=== PATIENT | female | born 1940 | race Hispanic/Latino ===

== ENCOUNTER 2020-06-12 13:15 | Observation (INO) | payer MEDICARE ==
[~2020-06-12] VITALS: Ht 144.8 cm; Wt 68.3 kg
[2020-06-12] MEDS ORDERED: PANTOPRAZOLE 40 MG 10ML VIAL IV STA (13:24)
--- NOTE | 2020-06-12 13:40 | Emergency Department Note ---
History of Present Illnes History of Present Illness Chief Complaint: General Medicine Complaints History of Present Illness This is a 80 year old female sent from Dr. George's office for LGIB. Chief Complaint Comment Patient in from home after being told to come here by Dr. Ac for rectal bleeding. Patient is under the care of Dr. George for GI and was at his office where a digital rectal exam was done and bleeding was noted. Per report, the patient started bleeding on Monday with small amounts of blood but it progressed to large clots today. Patient was also told that she has common bile duct distension and that was the reason why she has been going to see Dr. George. At this time the patient denies pain but does report some mild abdominal pain that was worse on Monday. Patient is also planned to have a hysterectomy and bladder suspension soon due to frequent UTIs. Socially the patient denies smoking or drinking. Historian: Patient, Family Member Arrival Mode: Car Onset (how long ago): day(s) Radiation: Reports non-radiation Severity: mild Onset quality: gradual Duration (how long): day(s) Timing of current episode: constant Progression: worsening Chronicity: new Past Medical/Family History Physician Review I have reviewed the patient's past medical and family history. Any updates have been documented here. Past Medical History Recent Fever: No Clinical Suspicion of Infectio: No New/Unexplained Change in Ment: No Past Medical History: Hypertension, Hypothyroidism, Hyperlipedemia Other Medical History: Diverticulitis Gastritis Hemorrhoids Past Surgical History: Cholecysctectomy, Back Surgery Other Surgery: arthroscopic knee surgery on left Social History Smoking Cessation: Never Smoker Review of Systems Review of Systems Constitutional: Reports no symptoms EENTM: Reports no symptoms Cardiovascular: Reports no symptoms Respiratory: Reports no symptoms Gastrointestinal: Reports as per HPI Genitourinary: Reports no symptoms Musculoskeletal: Reports no symptoms Integumentary: Reports no symptoms Neurological: Reports no symptoms Psychological: Reports no symptoms Endocrine: Reports no symptoms Hematological/Lymphatic: Reports no symptoms Physical Exam Related Data Allergies: Coded Allergies: No Known Allergies (Unverified , 06/12/20) Triage Vital Signs Vital Signs Date Time Temp Pulse Resp B/P (MAP) Pulse Ox O2 Delivery O2 Flow Rate FiO2 06/12/20 13:23 98.2 54 18 144/56 98 Room Air Vital signs reviewed: Yes Physical Exam CONSTITUTIONAL Constitutional: Present well-developed, Present well-nourished HENT HENT: Present normocephalic, Present atraumatic, Present oropharynx clear/moist, Present nose normal HENT L/R: Present left ext ear normal, Present right ext ear normal EYES Eyes: Reports PERRL, Reports conjunctivae normal NECK Neck: Present ROM normal PULMONARY Pulmonary: Present effort normal, Present breath sounds normal CARDIOVASCULAR Cardiovascular: Present regular rhythm, Present heart sounds normal, Present capillary refill normal, Present normal rate GASTROINTESTINAL Abdominal: Present soft, Present nontender, Present bowel sounds normal GENITOURINARY Genitourinary: Present exam deferred SKIN Skin: Present warm, Present dry MUSCULOSKELETAL Musculoskeletal: Present ROM normal NEUROLOGICAL Neurological: Present alert, Present oriented x 3, Present no gross motor or sensory deficits PSYCHOLOGICAL Psychological: Present mood/affect normal, Present judgement normal Results Laboratory Lab results reviewed: Yes Laboratory comments Laboratory Tests Test 06/12/20 15:26 06/12/20 13:28 White Blood Count 8.82 x10e3/uL (4.8-10.8) Red Blood Count 3.77 x10e6/uL (3.6-5.1) Hemoglobin 10.9 g/dL (12.0-16.0) Hematocrit 33.7 % (34.2-44.1) Mean Corpuscular Volume 89.4 fL (81-99) Mean Corpuscular Hemoglobin 28.9 pg (28-32) Mean Corpuscular Hemoglobin Concent 32.3 g/dL (31-35) Red Cell Distribution Width 13.8 % (11.7-14.4) Platelet Count 329 x10e3/uL (140-360) Neutrophils (%) (Auto) 66.3 % (38.7-80.0) Lymphocytes (%) (Auto) 23.7 % (18.0-39.1) Monocytes (%) (Auto) 7.4 % (4.4-11.3) Eosinophils (%) (Auto) 1.6 % (0.0-6.0) Basophils (%) (Auto) 0.7 % (0.0-1.0) Neutrophils # (Auto) 5.9 (2.1-6.9) Lymphocytes # (Auto) 2.1 (1.0-3.2) Monocytes # (Auto) 0.7 (0.2-0.8) Eosinophils # (Auto) 0.1 (0.0-0.4) Basophils # (Auto) 0.1 (0.0-0.1) Absolute Immature Granulocyte (auto 0.03 x10e3/uL (0-0.1) Prothrombin Time 12.7 seconds (11.9-14.5) Prothromb Time International Ratio 0.91 Sodium Level 134 mmol/L (136-145) Potassium Level 4.4 mmol/L (3.5-5.1) Chloride Level 99 mmol/L (98-107) Carbon Dioxide Level 26 mmol/L (22-29) Anion Gap 13.4 mmol/L (8-16) Blood Urea Nitrogen 15 mg/dL (7-26) Creatinine 0.84 mg/dL (0.57-1.11) Estimat Glomerular Filtration Rate > 60 ML/MIN (60-) BUN/Creatinine Ratio 18 (6-25) Glucose Level 71 mg/dL (74-118) Calcium Level 8.9 mg/dL (8.4-10.2) Total Bilirubin 0.4 mg/dL (0.2-1.2) Aspartate Amino Transf (AST/SGOT) 38 IU/L (5-34) Alanine Aminotransferase (ALT/SGPT) 23 IU/L (0-55) Alkaline Phosphatase 130 IU/L (40-150) Creatine Kinase 125 IU/L (29-168) Creatine Kinase MB 2.20 ng/mL (0-5.0) Troponin I 0.009 ng/mL (0-0.300) Total Protein 7.0 g/dL (6.5-8.1) Albumin 4.1 g/dL (3.5-5.0) Globulin 2.9 g/dL (2.3-3.5) Albumin/Globulin Ratio 1.4 (0.8-2.0) Imaging Imaging results reviewed: Yes Assessment & Plan Medical Decision Making MDM 80-year-old female sent to the ED by GI physician for dark stools. Patient admitted for colonoscopy and endoscopy, Dr. Osorio Assessment & Plan Final Impression: (1) LGI bleed Depart Disposition: ADMITTED Last Vital Signs Date Time Temp Pulse Resp B/P (MAP) Pulse Ox O2 Delivery O2 Flow Rate FiO2 06/12/20 13:23 98.2 54 18 144/56 98 Room Air Home Meds Reported Medications Lactobac Cmb #3/Fos/Pantethine (PROBIOTIC & ACIDOPHILUS CAP) 1 Each Capsule 06/12/20 Olmesartan Medoxomil (BENICAR) 20 Mg Tablet, 20 MG PO DAILY, #30 TAB 06/12/20 Dicyclomine Hcl (DICYCLOMINE HCL) 10 Mg Capsule 06/12/20 Simvastatin (SIMVASTATIN) 20 Mg Tablet, 20 MG PO 2100, EA 06/12/20 Pantoprazole Sodium* (PROTONIX) 40 Mg Tablet.dr, 40 MG PO, TAB 06/12/20 Levothyroxine Sodium (LEVOTHYROXINE SODIUM) 100 Mcg Vial, 100 MCG PO DAILY, % 06/12/20 Amlodipine Besylate (AMLODIPINE BESYLATE) 5 Mg Tablet, 5 MG PO DAILY, #30 TAB 06/12/20 Medications in the ED Pantoprazole Sodium 40 mg NOW STAT IV ; Start 06/12/20 at 13:24; Stop 06/12/20 at 13:25; Status UNV HARPAL FLOR, Jun 12, 2020 13:40
[2020-06-12 13:42] LABS: BASOPHILS # (AUTO) 0.1 (0.0-0.1); BASOPHILS % 0.7 % (0.0-1.0); EOSINOPHILS # (AUTO) 0.1 (0.0-0.4); EOSINOPHILS % 1.6 % (0.0-6.0); HEMATOCRIT 33.7 % (34.2-44.1); HEMOGLOBIN 10.9 g/dL (12.0-16.0); LYMPHOCYTES # (AUTO) 2.1 (1.0-3.2); LYMPHOCYTES % 23.7 % (18.0-39.1); MEAN CORPUSCULAR HEMOGLOBIN 28.9 pg (28-32); MEAN CORPUSCULAR HGB CONC 32.3 g/dL (31-35); MEAN CORPUSCULAR VOLUME 89.4 fL (81-99); MONOCYTES # (AUTO) 0.7 (0.2-0.8); MONOCYTES % 7.4 % (4.4-11.3); NEUTROPHILS # (AUTO) 5.9 (2.1-6.9); NEUTROPHILS % 66.3 % (38.7-80.0); PLATELET COUNT 329 x10e3/uL (140-360); RED BLOOD COUNT 3.77 x10e6/uL (3.6-5.1); RED CELL DISTRIBUTION WIDTH 13.8 % (11.7-14.4)
[2020-06-12 14:07] LABS: INR 0.91; PROTHROMBIN TIME 12.7 seconds (11.9-14.5)
--- OUTSIDE RECORDS SUMMARY | 2020-06-12 14:11 | XMS REPORT | Continuity of Care Document ---
Author Author [facility] t Organization [facility] Address [address] [place] [address] Phone Unavailable Care Team Providers Care Repair Armature Winder Name Role Phone Unavailable Unavailable Payers Payer Name Policy Type Policy Number Effective Date Expiration Date S ource Problems This patient has no known problems. Allergies, Adverse Reactions, Alerts Allergy Name Allergy Type Status Severity Reaction(s) Onset Date Inacti ve Date Treating Clinician Comments Source No Known Allergies DA Active U 2017-02-08 00:00:00 [facility] Medications This patient has no known medications. Procedures This patient has no known procedures. Results Test Description Test Time Test Comments Results Result Comments Source SCR MAMM BILATERAL UCHE CAD DIGITAL 2019-12-05 12:49:01 - SCR MAMM BILATERAL UCHE CAD DIGITALBILATERAL DIGITAL SCREENING MAMMOGRAM 3D/2D WITH CAD: 12/05/2019CLINICAL: Asymptomatic. Digital breast tomosynthesis was performed in addition to routine CC and MLO views. Current mammographic images were evaluated by either a [employer] M-Vu or a [employer] ImageChecker CAD (computer aided detection system). Comparison is made to exams dated 10/01/2018 mammogram, 2015 mammogram, and 09/02/2017 mammogram - [facility]. The tissue of both breasts is predominantly fatty. There are benign vascular calcifications and calcifications in both breasts. No suspicious mass, architectural distortion, malignant type calcification, or lymph node abnormality detected. Breast architecture is stable compared to prior exams.IMPRESSION: BENIGNThere is no mammographic evidence of malignancy. Resume annual screening mammography in one year. Patricia horne/penrad:12/05/2019 12:49:01 Taxation Consultant: Azalea MAIER, [facility] sent: BIRADS 1-2 Normal Mammogram BI-RADS: 2 Benign - CTA HEAD 2019-05-19 07:29:00 Name: ELLYN CONTEH [facility] : 1940 Age/S: 79 / F [address] [facility] Unit #: [id number] Loc: [place] [address] Phys: Regla Corbett MD Acct: [id number] Dis Date: Status: ADM IN PHONE #: [phone] Exam Date: 05/18/20192143 FAX #: [phone] Reason: HX OF STROKE EXAMS: CPT CODE: [id number] CTA HEAD 29899 HISTORY: Stroke. COMPARISON: None available. CTA [place] of [place]. 3-D images. 100 mL of Isovue-370. Automated exposure control. NASCET criteria. Bilateral petrous, cavernous and supraclinoid ICA are widely patent with mild atherosclerotic change. Both MCA are widely patent. Both NINO are patent. Diminutive left A1 segment. Intracranial vertebral arteries are patent. Basilar artery is patent. Superior cerebellar arteries are patent. Both PRODUCTION CONTROL CLERK are patent with origin on the right. Both posterior communicating arteries are absent. Anterior communicating artery is patent. No aneurysm. Dural sinuses are well-opacified. 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 No hem odynamically significant stenosis. Diminutive left A1 segment of NINO. at 0729 Reported and signed by: Jeremy Carlson M.D. CC: Regla Corbett MD; Mustapha Hathaway Technologist:Destinee Hidalgo RT(R)(CT) CTDI: DLP: Trnscb Date/Time: 05/19/2019 (728) [email or web address] Orig Print D/T: S: 05/19/2019 (4276) PAGE 1 Signed Report - CTA NECK 2019-05-18 10:26:00 Name: ELLYN CONTEH [facility] : 1940 Age/S: 79 / F [address] Unit #: [id number] Loc: [place] [address] Phys: Regla Corbett MD Acct: [id number] Dis Date: Status: ADM IN PHONE #: [phone] Exam Date: 05/18/2019921 FAX #: [phone] Reason: Stroke EXAMS: CPT CODE: [id number] CTA NECK 34881 HISTORY: Stroke TECHNIQUE: Cervical CT angiography was acquired in the axial plane after bolus IV administration of iodinated contrast. Multiplanar, maximum intensity projection (MIP), and volume rendered reconstructions were created on the 3-D workstation. Automated exposure control for dose reduction. COMPARISON: None FINDINGS: Atherosclerotic disease is present in the aortic arch. Bilateral distal cervical ICAs are patent. Mild atherosclerotic vascular calcification of the bilateral cavernous ICA segments. Bilateral petrous and supraclinoid ICA segments are patent. Normal enhancement of the bilateral ophthalmic arteries. Bilateral A1 and distal NINO segments are patent. Anterior communicating artery is present. Bilateral M1 and proximal MCA branches are patent. No aneurysm. Bilateral distal vertebral arteries are patent. Basilar artery is patent. Bilateral PICAs and SCAs are patent. Normal appearance of the basilar tip. Bilateral P1 and distal PRODUCTION CONTROL CLERK segments are patent. Hypoplastic left posterior commuting artery. No aneurysm. Dural venous sinuses and proximal internal jugular veins are patent. Visualized brain parenchyma is unremarkable. No mass-effect or midline shift. No hydrocephalus. Visualized paranasal sinuses and mastoid air cells are clear. Mild degenerative changes of the cervical spine. Prior lens extraction bilaterally. IMPRESSION: Mild atherosclerotic disease in the carotid arteries but no occlusion or hemodynamically significant stenosis. Vertebral arteries and basilar artery are within normal limits. The anterior, middle, and posterior cerebral arteries are within normal limits and the proximal branches of these arteries are patent with no visualized aneurysm. PAGE 1 Signed Report (CONTINUED) Name: ELLYN JIMENEZ [facility] : 1940 Age/S: 79 / F [address] Unit #: [id number] Loc: S[place] [address] Phys: Regla Corbett MD Acct: [id number] Dis Date: Status: ADM IN PHONE #: [phone] Exam Date: 05/18/2019 0922 FAX #: [phone] Reason: Stroke EXAMS: CPT CODE: [id number] CTA NECK 51035 <Continued> at 1026 Reported and signed by: Cornel Spain MD CC: Regla Corbett MD; Mustapha Hathaway Technologist:Angella Kendrick RT(R),CT CTDI: DLP: Trnscb Date/Time: 05/18/2019 (1026) [email or web address] Orig Print D/T: S: 05/18/2019 (1029) PAGE 2 Signed Report - CT ABD PELVIS W WO CONT 2019-05-17 23:12:00 Name: ELLYN JIMENEZ [facility] : 1940 Age/S: 79 / F [address] [facility] Unit #: [id number] Loc: [place] [address] Phys: Mustapha Hathaway MD Acct: [id number] Dis Date: Status: ADM IN PHONE #: [phone] Exam Date: 05/17/2019 1633 FAX #: [phone] Reason: PAIN EXAMS: CPT CODE: [id number] CT ABD PELVIS W WO CONT 73792 REASON FOR EXAM: PAIN EXAM ORDER DATE: 05/17/2019 3:38 PM Ordering M.D.: Mustapha Orozco MD PROCEDURE: - CT ABD PELVIS W WO CONT pre and postcontrast axial CT images were acquired through the abdomen/pelvis at 5 mm intervals. Sagittal and coronal reformatted images were generated. Automated exposure control was utilized for this reduction. Phases of contrast: venous and delayed COMPARISON: CT of the abdomen and pelvis January 07, 2015. MRCP October 09, 2018 is available for review. There is also an abdominal ultrasound September 2018 FINDINGS: Visualized thorax: There is subsegmental atelectasis in the bilateral lower lobes. There is extensive atherosclerotic disease of the left anterior descending coronary artery. Hepatobiliary system: Prior cholecystectomy. Dilation of the intra and extrahepatic biliary tree is likely secondary to the patient's cholecystectomy. Questionable hemangioma seen on the previous CT scan is not appreciated on this exam. Pancreas: Atrophic Spleen: Normal Adrenal glands: Normal Genitourinary system: Normal Gastrointestinal tract and appendix: There is severe diverticular disease of the sigmoid and descending colon. Moderate stool burden is seen throughout the colon suggesting constipation. Appendix is within normal l imits. Small hiatal hernia. Duodenal diverticulum is present. Abdominal vascular structures: Atherosclerotic disease is present in the abdominal aorta. There is also atherosclerotic disease in the iliac and femoral arteries. PAGE 1 Signed Report (CONTINUED) Name: ELLYN JIMENEZ [facility] : 1940 Age/S: 79 / F [address] [facility] Unit #: [id number] Loc: [place] [address] Phys: Mustapha Hathaway MD Acct: [id number] Dis Date: Status: ADM IN PHONE #: [phone] Exam Date: 05/17/2019 1633 FAX #: [phone] Reason: PAIN EXAMS: CPT CODE: [id number] CT ABD PELVIS W WO CONT 67759 <Continued> Peritoneum and retroperitoneum: No free fluid or free air. No omental or mesenteric masses. No abnormal lymph nodes. 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 Degenerative changes are also seen throughout the visualized spine. IMPRESSION: Severe colonic diverticulosis without evidence of diverticulitis. Moderate amount of stool burden suggests constipation. Prior cholecystectomy with physiologic dilatation of the intra and extra hepatic biliary tree. Duodenal diverticulum. at 2312 Reported and signed by: Cornel Spain MD CC: Mustapha Hathaway Technologist:Nissa Stover RT(R) CTDI: DLP: Trnscb Date/Time: 05/17/2019 (231) [email or web address] Orig Print D/T: S: 05/17/2019 (9562) PAGE 2 Signed Report - MRI BRAIN W/O CONTRAST 2019-05-17 22:22:00 FA X: Mustapha Hathaway [phone] [place]: B St: ADM -- Name: ELLYN JIMENEZ [facility] : 1940 Age/S: 79/F [address] [facility] Unit #: [id number] Loc: V.[address] [place] [address] Phys: Mustapha Hathaway MD Acct: [id number] Dis Date: Status: ADM IN PHONE #: [phone] Exam Date: 05/17/2019 1709 FAX #: [phone] Reason: TIA EXAMS: CPT CODE: [id number] MRI BRAIN W/O CONTRAST 43600 REASON FOR EXAM: TIA Exam Order Date: 05/17/2019 10:15 PM Attending M.D.: Mustapha Orozco MD Procedure: - MRI BRAIN W /O CONTRAST Comparison: Noncontrast CT brain the previous morning FINDINGS: Axial, sagittal, and coronal images of the head were obtained using T1, T2 weighted, inversion recovery, diffusion weighted, and gradient echo sequences. No intravenous gadolinium was given. The sagittal images show normal pituitary, cerebellum, and brain stem. No evidence of suprasellar mass. The axial T2, inversion recovery, and gradient echo images show no evidence of intra or extra axial mass. The ventricles, cisterns, and sulci are unremarkable. No evidence of hemorrhage. The cerebellar pontine angle area is within normal limits. There is no evidence of mass noted. The axial T1 images show no evidence of mass. Diffusion-weighted imaging demonstrates a few hyperintense foci in the right frontal lobe (series 3 images 27 through 31) which are hypointense on apparent di ffusion coefficient sequence. These lesions are also hyperintense on the inversion recovery sequences. Findings are compatible with acute infarctions greater than 6 hours since onset. No other diffusion restricting lesions are seen. No hemorrhagic products in the brain parenchyma. There is an old infarct involving the anterior limb of the right internal capsule that was also seen on the previous CT scan. The coronal images show normal optic chiasm. IMPRESSION: Focal acute infarctions in the right frontal lobe in the territory of a distal branch of the right MCA. Signal characteristics indicate that more than 6 hours have passed since onset of these infarcts. 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 PAGE 1 Signed Report (CONTINUED) FAX: Mustapha Hathaway [phone] [place]: St: ADM Name: ELLYN JIMENEZ [facility] : 1940 Age/S: 79/F [address] [facility] Unit #: [id number] Loc: V.5[address] [place] [address] Phys: Mustapha Hathaway MD Acct: [id number] Dis Date: Status: ADM IN PHONE #: [phone] Exam Date: 05/17/2019 1709 FAX #: [phone] Reason: TIA EXAMS: CPT CODE: [id number] MRI BRAIN W/O CONTRAST 11016 <Continued> at 2222 Reported and signed by: Cornel Spain MD CC: Mustapha Hathaway Technologist: Germain Balderrama(Femi)(MR) Trnscrd Date/Time/By: 05/17/2019 (2221) : By: [email or web address] [facility] Print D/T: S: 05/17/2019 (2224) PAGE 2 Signed Report URINALYSIS COMPLETE 2019-05-16 09:25:00 Test Item UA COLOR (test code = COLU) STRAW YELLOW UA APPEARANCE (test code = APPU) CLEAR CLEAR UA GLUCOSE DIPSTICK (test code = DGLUU) norm mg/dL NEGATIVE UA BILIRUBIN DIPSTICK (test code = BILU) NEGATIVE mg/dL NEGATIVE UA KETONE DIPSTICK (test code = KETU) neg mg/dL NEGATIVE UA SPECIFIC GRAVITY (test code = SGU) 1.005 1.001-1.035 UA BLOOD DIPSTICK (test code = JOSE) neg Freddie/uL NEGATIVE UA PH DIPSTICK (test code = TALYA) 7.0 5.0-8.0 UA PROTEIN DIPSTICK (test code = PROU) neg mg/dL Neg-15 UA UROBILINIOGEN DIPSTICK (test code = URO) norm mg/dL 0.0-0.2 UA NITRITE DIPSTICK (test code = GINA) NEGATIVE NEGATIVE UA LEUKOCYTE ESTERASE DIPSTICK (test code = LEUU) 25 Teena/uL (Tra ce) uL NEGATIVE A UA WBC (test code = WBCU) 0-1 per HPF 0-5 UA RBC (test code = RBCU) 0-1 per HPF 0-5 UA EPITHELIAL CELLS (test code = EPIU) FEW per HPF Few UA BACTERIA (test code = BACU) NONE SEEN per HPF NONE URINALYSIS W/O [id number] 09:25:00* Test Item Value Reference Range Interpretation Comments UA MICROSCOPIC NEEDED? (test code = UAMICRO) YES URINALYSIS [id number] 09:19:00* Test Item Value Reference Range Interpretation Comments UA COLOR (test code = COLU) STRAW YELLOW UA APPEARANCE (test code = APPU) CLEAR UA GLUCOSE DIPSTICK (test code = DGLUU) norm mg/dL NEGATIVE UA BILIRUBIN DIPSTICK (test code = BILU) NEGATIVE mg/dL NEGATIVE UA KETONE DIPSTICK (test code = KETU) neg mg/dL NEGATIVE UA SPECIFIC GRAVITY (test code = SGU) 1.005 1.001-1.035 UA BLOOD DIPSTICK (test code = JOSE) neg Freddie/uL NEGATIVE UA PH DIPSTICK (test code = TALYA) 7.0 5.0-8.0 UA PROTEIN DIPSTICK (test code = PROU) neg mg/dL Neg-15 UA UROBILINIOGEN DIPSTICK (test code = URO) norm mg/dL 0.0-0.2 UA NITRITE DIPSTICK (test code = GINA) NEGATIVE NEGATIVE UA LEUKOCYTE ESTERASE DIPSTICK (test code = LEUU) 25 Teena/uL (Tra ce) uL NEGATIVE A UA WBC (test code = WBCU) per HPF 0-5 UA RBC (test code = RBCU) per HPF 0-5 UA EPITHELIAL CELLS (test code = EPIU) per HPF Few UA BACTERIA (test code = BACU) per HPF NONE URINALYSIS W/O [id number] 09:19:00* Test Item Value Reference Range Interpretation Comments UA MICROSCOPIC NEEDED? (test code = UAMICRO) URINALYSIS [id number] 09:19:00* Test Item Value Reference Range Interpretation Comments UA COLOR (test code = COLU) STRAW YELLOW UA APPEARANCE (test code = APPU) CLEAR UA GLUCOSE DIPSTICK (test code = DGLUU) norm mg/dL NEGATIVE UA BILIRUBIN DIPSTICK (test code = BILU) NEGATIVE mg/dL NEGATIVE UA KETONE DIPSTICK (test code = KETU) neg mg/dL NEGATIVE UA SPECIFIC GRAVITY (test code = SGU) 1.005 1.001-1.035 UA BLOOD DIPSTICK (test code = JOSE) neg Freddie/uL NEGATIVE UA PH DIPSTICK (test code = TALYA) 7.0 5.0-8.0 UA PROTEIN DIPSTICK (test code = PROU) neg mg/dL Neg-15 UA UROBILINIOGEN DIPSTICK (test code = URO) norm mg/dL 0.0-0.2 UA NITRITE DIPSTICK (test code = GINA) NEGATIVE NEGATIVE UA LEUKOCYTE ESTERASE DIPSTICK (test code = LEUU) 25 Teena/uL (Tra ce) uL NEGATIVE A UA WBC (test code = WBCU) per HPF 0-5 UA RBC (test code = RBCU) per HPF 0-5 UA EPITHELIAL CELLS (test code = EPIU) per HPF Few UA BACTERIA (test code = BACU) per HPF NONE URINALYSIS W/O [id number] 09:19:00* Test Item Value Reference Range Interpretation Comments UA MICROSCOPIC NEEDED? (test code = UAMICRO) - CT HEAD/BRAIN W/O [id number] 07:53:00 Name: ELLYN JIMENEZ [facility] : 1940 Age/S: 79 / F [address] [facility] Unit #: [id number] Loc: [place] [address] Phys: Jase Bautista MD Acct: [id number] Dis Date: Status: REG ER PHONE #: [phone] Exam Date: 05/16/2019 0740 FAX #: [phone] Reason: weakness EXAMS: CPT CODE: [id number] CT HEAD/BRAIN W/O CONT 52450 HISTORY: weakness and dizziness TECHNIQUE: Noncontrast 2.[address] of the head. Examination acquired within 24 hours of arrival. Automated exposure control for dose reduction; DLP: 453 mGy-cm. COMPARISON: None FINDINGS: No acute hemorrhage. No CT evidence of acute infarct. 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 Mild periventricular chronic microvascular ischemic changes. No intracranial mass or mass effect. Mild parenchymal atrophy. No hydrocephalus. No extra-axial fluid collection. Atherosclerotic vascular calcification of the carotid siphons. Visualized paranasal sinuses are clear. Mastoid air cells and middle ear cavities are clear. Bilateral lens implants. Calvarium and skull base are intact. IMPRESSION: No CT evidence of acute infarct. MRI would be more sensitive if there is continued clinical concern. No acute intracranial h emorrhage. Chronic lacunar infarct of the anterior right inter nal capsule. Mild periventricular chronic microvascular ischemic changes . Atherosclerotic vascular disease. at 0753 Reported and signed by: Ludivina Patterson D.O. CC: Jase Bautista MD Technologist:JIE DISLA RT(R),CT CTDI: DLP: Trnscb Date/Time: 05/16/2019 (0753) [email or web address] Orig Print D/T: S: 05/16/2019 (0756) PAGE 1 Signed Report COMPREHENSIVE METABOLIC [id number] 07:48:00* Test Item Value Reference Range Interpretation Comments SODIUM (test code = NA) 140 mmol/L 136-145 N POTASSIUM (test code = K) 4.3 mmol/L 3.5-5.1 N CHLORIDE (test code = CL) 103 mmol/L 101-109 N CARBON DIOXIDE (test code = CO2) 30.0 mmol/L 21-32 N ANION GAP (test code = GAP) 11 mmol/L 10-20 N GLUCOSE (test code = GLU) 106 mg/dL 74-106 N BLOOD UREA NITROGEN (test code = BUN) 22 mg/dL 3-21 H CREATININE (test code = CREAT) 0.99 mg/dL 0.55-1.3 N BUN/CREATININE RATIO (test code = BUN/CREA) 22.2 10-20 H TOTAL PROTEIN (test code = PROT) 7.6 g/dL 6.5-8.4 N ALBUMIN (test code = ALB) 3.9 g/dL 3.4-4.8 N GLOBULIN (test code = GLOB) 3.7 G/DL 1-10 N ALBUMIN/GLOBULIN RATIO (test code = A/G) 1.05 RATIO 0.75-1.50 N CALCIUM (test code = CA) 9.4 mg/dL 8.4-10.2 N BILIRUBIN TOTAL (test code = BILT) 0.40 mg/dL 0.0-1.0 N SGOT/AST (test code = AST) 30 U/L 6-32 N SGPT/ALT (test code = ALT) 20 U/L 12-78 N N ote: Change in REFERENCE RANGE due to new reagent method. ALKALINE PHOSPHATASE TOTAL (test code = ALKP) 119 U/L 38-126 N [id number] 07:48:00* Test Item Value Reference Range Interpretation Comments TROPONIN-I (test code = TROPI) <0.015 ng/mL 0.00-0.056 N COMPREHENSIVE METABOLIC [id number] 07:42:00* Test Item Value Reference Range Interpretation Comments SODIUM (test code = NA) 140 mmol/L 136-145 N POTASSIUM (test code = K) 4.3 mmol/L 3.5-5.1 N CHLORIDE (test code = CL) 103 mmol/L 101-109 N CARBON DIOXIDE (test code = CO2) 30.0 mmol/L 21-32 N ANION GAP (test code = GAP) 11 mmol/L 10-20 N GLUCOSE (test code = GLU) 106 mg/dL 74-106 N BLOOD UREA NITROGEN (test code = BUN) 22 mg/dL 3-21 H CREATININE (test code = CREAT) 0.99 mg/dL 0.55-1.3 N BUN/CREATININE RATIO (test code = BUN/CREA) 22.2 10-20 H TOTAL PROTEIN (test code = PROT) gram/dL 6.4-8.2 ALBUMIN (test code = ALB) g/dL 3.4-5.0 GLOBULIN (test code = GLOB) g/dL 2.7-4.2 ALBUMIN/GLOBULIN RATIO (test code = A/G) 0.75-1.50 CALCIUM (test code = CA) 9.4 mg/dL 8.4-10.2 N BILIRUBIN TOTAL (test code = BILT) mg/dL 0.2-1.2 SGOT/AST (test code = AST) IUnit/L 15-37 SGPT/ALT (test code = ALT) U/L 10-69 ALKALINE PHOSPHATASE TOTAL (test code = ALKP) IUnit/L 45-117 [id number] 07:42:00* Test Item Value Reference Range Interpretation Comments TROPONIN-I (test code = TROPI) ng/mL 0-0.045 CBC W/AUTO [id number] 07:35:00* Test Item Value Reference Range Interpretation Comments WHITE BLOOD CELL (test code = WBC) 10.0 K/mm3 4.5-12.5 N RED BLOOD CELL (test code = RBC) 4.60 mill/mm3 3.7-5.2 N HEMOGLOBIN (test code = HGB) 13.3 gram/dL 11.5-15.5 N HEMATOCRIT (test code = HCT) 41.0 % 36.0-46.0 N MEAN CELL VOLUME (test code = MCV) 89.1 fL 80-98 N MEAN CELL HGB (test code = MCH) 28.9 picogram 27.0-33.0 N MEAN CELL HGB CONCETRATION (test code = MCHC) 32.4 gram/dL 33.0-36. 0 L RED CELL DISTRIBUTION WIDTH (test code = RDW) 13.6 % 11.6-16. 2 N RED CELL DISTRIBUTION WIDTH SD (test code = RDW-SD) 45.5 fL 37 .0-51.0 N PLATELET COUNT (test code = PLT) 314 K/mm3 150-450 N MEAN PLATELET VOLUME (test code = MPV) 9.7 fL 6.7-11.0 N NEUTROPHIL % (test code = NT%) 73.9 % 39.0-69.0 H LYMPHOCYTE % (test code = LY%) 17.5 % 25.0-55.0 L MONOCYTE % (test code = MO%) 5.5 % 0.0-10.0 N EOSINOPHIL % (test code = EO%) 2.4 % 0.0-5.0 N BASOPHIL % (test code = BA%) 0.5 % 0.0-1.0 N NEUTROPHIL # (test code = NT#) 7.37 K/mm3 1.8-7.7 N LYMPHOCYTE # (test code = LY#) 1.75 K/mm3 1.0-5.0 N MONOCYTE # (test code = MO#) 0.55 K/mm3 0-0.8 N EOSINOPHIL # (test code = EO#) 0.24 K/mm3 0.0-0.5 N BASOPHIL # (test code = BA#) 0.05 K/mm3 0.0-0.2 N MANUAL DIFF REQUIRED (test code = MDIFF) NO [id number] 15:43:00 RUN DATE: 10/12/18 [place] PAGE 1 RUN TIME: 1544 Specimen Inqui ry RUN USER: INTERFACE PATIENT: ELLYN JIMENEZ ACCT #: [id number] LOC: [facility] U #: [id number] AGE/SX: 78/F ROOM: RE10/11/18CAM DR: Gavin Childers MD : 38 BED: DIS: STATUS: DEP [facility] TLOC: SPEC #: [id number] RECD: 10/11/18 STATUS: SANJAY VILLA #: [id number] ROBERTO: 10/11/18-5 [facility] DR: Gavin Childers MD ENTERED: 10/11/18 SP TYPE: GALLBLADD OTHR DR: Silke Baig MD ORDERED: GROSS COPIES TO: Gavin Childers MD [address] [place] [address] Silke Beard MD [address] [place] [address] MARKERS: ABNORMAL TISSUE, GALLBLAD DAVIDSON PROCEDURES: GROSS (10/12/18) TISSUES: GALLBLADDER, NOS CLINICAL HISTORY COLLECTION DATE: 10/11/18 CHRONIC CHOLECYSTITIS, CHOL ELITHIASIS FINAL DIAGNOSIS Gallbladder, cholecystectomy: KEY LITHIASIS CHRONIC CHOLECYSTITIS UNREMARKABLE LYMPH NODE NEG ATIVE FOR MALIGNANCY ANDREWW/[place] [id number] CONTINUED ON NEXT PAGE RUN DATE: 10/12/18 [facility] PAGE 2 RUN TIME: 1544 Specimen Inquiry RUN USER: INTERF CRUZ SPEC # : [id number] PATIENT: ELLYN JIMENEZ #[id number] (Cont inued) MACROSCOPIC The specimen is received in formali n, labeled with the patient's name, and identified as "gallbladder". It consi sts of an intact gallbladder with a smooth pink-carranza serosal surface. The spec imen measures 8.7 cm in length with diameter up to 3.0 cm. A 1.8 cm segment o f a cystic duct is attached to the gallbladder and a small pink-carranza lymph node measuring 0.4 cm in greatest diameter is present at the neck of the gallbladd er. The gallbladder contains green-yellow bile and a few small green-black st ones ranging from 0.1 up to 0.35 cm in diameter. The mucosal surface is carranza-p ink and smooth. The gallbladder wall measures up to 0.2 cm in thickness. No nodules or masses are present. Health Program Analyst tissue is submitted in a single cassette. GROSS PERFORMED AT [facility] [address] [place], [place] [address] (p)[phone] MAREK ROSCOPIC MICROSCOPIC PERFORMED AT [facility] All of the stains, including any controls performed, stain appropriately. [facility] [address] [place] [address] (p)[phone] PERFOR CYNDI SITE Diagnosis performed at: [facility], [address] [place] [address] -------- ---- Signed SIGNATURE ON FILE Erin Cuevas/18/19 1 543 END OF REPORT SCR MAMM BILATERAL UCHE CAD [id number] 10:26:02 - SCR MAMM BILATERAL UCHE CAD DIGITALBILATERAL DIGITAL SCREENING MAMMOGRAM 3D/2D WITH CAD: 10/01/2018CLINICAL: Asymptomatic. Digital breast tomosynthesis was performed in addition to routine CC and MLO views. Current mammographic images were evaluated by either a [employer] M-Vu or a [employer] ImageSmarketscker CAD (computer aided detection system). Comparison is made to exams dated 09/02/2017 mammogram, 1 09/25/2015 mammogram, and 07/15/2015 mammogram - [facility]. The tissue of both breasts is predominantly fatty. There are benign vascular calcif ications and calcifications in both breasts. No suspicious mass, architectural distortion, malignant type calcification, or lymph node abnormality detected. B reast architecture is stable compared to prior exams.IMPRESSION: BENIGNThere is no mammographic evidence of malignancy. Resume annual screening mammography in o ne year. Karen reis/genia:10/01/2018 10:26:02 Imaging T echnologist: India Francisco , [facility] sent: BIRADS 1-2 Normal Mammogram BI-RADS: 2 Benign
[2020-06-12 14:16] LABS: ALANINE AMINOTRANSFERASE 23 IU/L (0-55); ALBUMIN 4.1 g/dL (3.5-5.0); ALBUMIN/GLOBULIN RATIO 1.4 (0.8-2.0); ALKALINE PHOSPHATASE 130 IU/L (40-150); ANION GAP 13.4 mmol/L (8-16); BLOOD UREA NITROGEN 15 mg/dL (7-26); BUN/CREATININE RATIO 18 (6-25); CALCIUM 8.9 mg/dL (8.4-10.2); CARBON DIOXIDE 26 mmol/L (22-29); CHLORIDE 99 mmol/L (98-107); CREATINE KINASE 125 IU/L (29-168); CREATININE, SERUM 0.84 mg/dL (0.57-1.11); EST GLOMERULAR FILTRATION RATE > 60 ML/MIN (60-); GLUCOSE 71 mg/dL (74-118); POTASSIUM 4.4 mmol/L (3.5-5.1); SODIUM 134 mmol/L (136-145)
--- OUTSIDE RECORDS SUMMARY | 2020-06-12 14:24 | XMS REPORT | Continuity of Care Document ---
Author Author [facility] t Organization [facility] Address [address] [place] [address] Phone Unavailable Care Team Providers Care Operations Analyst Name Role Phone Unavailable Unavailable Payers Payer Name Policy Type Policy Number Effective Date Expiration Date S ource Problems This patient has no known problems. Allergies, Adverse Reactions, Alerts Allergy Name Allergy Type Status Severity Reaction(s) Onset Date Inacti ve Date Treating Clinician Comments Source No Known Allergies DA Active U 2017-02-08 00:00:00 [facility] Medications This patient has no known medications. [...] mammographic images were evaluated by either a [employer] M-Vu or a Oscar ImageChecker CAD (computer aided detection system). Comparison [...] mammography in one year. Patricia horne/penrad:12/05/2019 12:49:01 Veneer Glue Spreader: Azalea MAIER, [facility] sent: BIRADS 1-2 Normal Mammogram BI-RADS: 2 Benign - CTA HEAD 2019-05-19 07:29:00 Name: ELLYN CONTEH [facility] : 1940 Age/S: 79 / F [address] [facility] Unit #: [id number] Loc: S[place] Ramos [address] Phys: Regla Corbett MD Acct: [id number] Dis Date: Status: ADM IN PHONE #: [phone] Exam Date: 05/18/20192143 FAX #: [phone] Reason: HX OF STROKE EXAMS: CPT CODE: [id number] CTA HEAD 10601 HISTORY: Stroke. COMPARISON: None available. CTA match-[place]-be[place]. 3-D images. 100 mL of Isovue-370. Automated exposure control. NASCET criteria. Bilateral petrous, cavernous and supraclinoid ICA are widely patent with mild atherosclerotic change. Both MCA are widely patent. Both NINO are patent. Diminutive left A1 segment. Intracranial vertebral arteries are patent. Basilar artery is patent. Superior cerebellar arteries are patent. Both BLOCKERS SKIVER are patent with origin on the right. Both posterior communicating arteries are absent. Anterior communicating artery is patent. No aneurysm. Dural sinuses are well-opacified. 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 No hem odynamically significant stenosis. Diminutive left A1 segment of NINO. at 0729 Reported and signed by: Jeremy Carlson M.D. CC: Regla Corbett MD; Mustapha Hathaway Technologist:Destinee Hidalgo RT(R)(CT) CTDI: DLP: Trnscb Date/Time: 05/19/2019 (728) [email or web address] Orig Print D/T: S: 05/19/2019 (1075) PAGE 1 Signed Report - CTA NECK 2019-05-18 10:26:00 Name: ELLYN CONTEH [facility] : 1940 Age/S: 79 / F [address] Unit #: [id number] Loc: S[place] Ramos [address] Phys: Regla Corbett MD Acct: [id number] Dis Date: Status: ADM IN PHONE #: [phone] Exam Date: 05/18/2019921 FAX #: [phone] Reason: Stroke EXAMS: CPT CODE: [id number] CTA NECK 84307 HISTORY: Stroke TECHNIQUE: Cervical CT angiography was [...] the basilar tip. Bilateral P1 and distal BLOCKERS SKIVER segments are patent. Hypoplastic left posterior commuting [...] 1 Signed Report (CONTINUED) Name: ELLYN JIMENEZ [facility] : 1940 Age/S: 79 / F [address] Unit #: [id number] Loc: S[place] Ramos [address] Phys: Regla Corbett MD Acct: [id number] Dis Date: Status: ADM IN PHONE #: [phone] Exam Date: 05/18/2019 0922 FAX #: [phone] Reason: Stroke EXAMS: CPT CODE: [id number] CTA NECK 10871 <Continued> at 1026 Reported and signed by: Cornel Spain MD CC: eRgla Corbett MD; Mustapha Hathaway Technologist:Angella Kendrick RT(R),CT CTDI: DLP: Trnscb Date/Time: 05/18/2019 (1026) [email or web address] Orig Print D/T: S: 05/18/2019 (1029) PAGE 2 Signed Report - CT ABD PELVIS W WO CONT 2019-05-17 23:12:00 Name: ELLYN JIMENEZ [facility] : 1940 Age/S: 79 / F [address] [facility] Unit #: [id number] Loc: [place] [address] Phys: Mustapha Hathaway MD Acct: [id number] Dis Date: Status: ADM IN PHONE #: [phone] Exam Date: 05/17/2019 1633 FAX #: [phone] Reason: PAIN EXAMS: CPT CODE: [id number] CT ABD PELVIS W WO CONT 53635 REASON FOR EXAM: PAIN EXAM ORDER DATE: [...] 1 Signed Report (CONTINUED) Name: ELLYN JIMENEZ [facility] : 1940 Age/S: 79 / F [address] [facility] Unit #: [id number] Loc: [place] [address] Phys: Mustapha Hathaway MD Acct: [id number] Dis Date: Status: ADM IN PHONE #: [phone] Exam Date: 05/17/2019 1633 FAX #: [phone] Reason: PAIN EXAMS: CPT CODE: [id number] CT ABD PELVIS W WO CONT 53334 <Continued> Peritoneum and retroperitoneum: No free fluid [...] (231) [email or web address] Orig Print D/T: S: 05/17/2019 (2310) PAGE 2 Signed Report - MRI BRAIN W/O CONTRAST 2019-05-17 22:22:00 FA X: Mustapha Hathaway [phone] [place]: B St: ADM -- Name: ELLYN JIMENEZ [facility] : 1940 Age/S: 79/F [address] [facility] Unit #: [id number] Loc: V[address] [place] [address] Phys: Mustapha Hathaway MD Acct: [id number] Dis Date: Status: ADM IN PHONE #: [phone] Exam Date: 05/17/2019 1709 FAX #: [phone] Reason: TIA EXAMS: CPT CODE: [id number] MRI BRAIN W/O CONTRAST 88631 REASON FOR EXAM: TIA Exam Order Date: [...] 1 Signed Report (CONTINUED) FAX: Mustapha Hathaway [phone] [place]: St: ADM Name: ELLYN JIMENEZ [facility] : 1940 Age/S: 79/F [address] [facility] Unit #: [id number] Loc: V.[address] [place] [address] Phys: Mustapha Hathaway MD Acct: [id number] Dis Date: Status: ADM IN PHONE #: [phone] Exam Date: 05/17/2019 1709 FAX #: [phone] Reason: TIA EXAMS: CPT CODE: [id number] MRI BRAIN W/O CONTRAST 93484 <Continued> at 2222 Reported and signed by: Cornel Spain MD CC: Mustapha Hathaway Technologist: Germain Balderrama(Femi)(MR) Trnscrd Date/Time/By: 05/17/2019 (2221) : By: [email or web address] [facility] Print D/T: S: 05/17/2019 (2224) PAGE [...] NONE SEEN per HPF NONE URINALYSIS W/O [id number] 09:25:00* Test Item Value Reference Range Interpretation Comments UA MICROSCOPIC NEEDED? (test code = UAMICRO) YES URINALYSIS [id number] 09:19:00* Test Item Value Reference Range Interpretation [...] = BACU) per HPF NONE URINALYSIS W/O [id number] 09:19:00* Test Item Value Reference Range Interpretation Comments UA MICROSCOPIC NEEDED? (test code = UAMICRO) URINALYSIS [id number] 09:19:00* Test Item Value Reference Range Interpretation [...] = BACU) per HPF NONE URINALYSIS W/O [id number] 09:19:00* Test Item Value Reference Range Interpretation Comments UA MICROSCOPIC NEEDED? (test code = UAMICRO) - CT HEAD/BRAIN W/O [id number] 07:53:00 Name: ELLYN JIMENEZ [facility] : 1940 Age/S: 79 / F [address] [facility] Unit #: [id number] Loc: Siena Ramos [address] Phys: Jase Bautista MD Acct: [id number] Dis Date: Status: REG ER PHONE #: [phone] Exam Date: 05/16/2019 0740 FAX #: [phone] Reason: weakness EXAMS: CPT CODE: [id number] CT HEAD/BRAIN W/O CONT 02958 HISTORY: weakness and dizziness TECHNIQUE: Noncontrast 2.5 [...] (0756) PAGE 1 Signed Report COMPREHENSIVE METABOLIC [id number] 07:48:00* Test Item Value Reference Range Interpretation [...] code = ALKP) 119 U/L 38-126 N [id number] 07:48:00* Test Item Value Reference Range Interpretation Comments TROPONIN-I (test code = TROPI) <0.015 ng/mL 0.00-0.056 N COMPREHENSIVE METABOLIC [id number] 07:42:00* Test Item Value Reference Range Interpretation [...] TOTAL (test code = ALKP) IUnit/L 45-117 [id number] 07:42:00* Test Item Value Reference Range Interpretation Comments TROPONIN-I (test code = TROPI) ng/mL 0-0.045 CBC W/AUTO [id number] 07:35:00* Test Item Value Reference Range Interpretation [...] DIFF REQUIRED (test code = MDIFF) NO [id number] 15:43:00 RUN DATE: 10/12/18 [employer] PAGE 1 RUN TIME: 1544 Specimen Inqui ry RUN USER: INTERFACE PATIENT: ELLYN JIMENEZ ACCT #: [id number] LOC: [facility] U #: [id number] AGE/SX: 78/F ROOM: RE10/11/18CAM DR: Gavin Childers MD : 38 BED: DIS: STATUS: [facility] TLOC: SPEC #: [id number] RECD: 10/11/18 STATUS: SANJAY VILLA #: [id number] ROBERTO: 10/11/18-[address] [facility] [address]: Gavin Childers MD ENTERED: 10/11/18 SP TYPE: GALLBLADD OTHR DR: Silke Baig MD ORDERED: GROSS COPIES TO: Gavin Childers MD [address] [place] [address] Silke Beard MD [address] [place] [address] MARKERS: ABNORMAL TISSUE, GALLBLAD DAVIDSON PROCEDURES: GROSS (10/12/18) TISSUES: GALLBLADDER, NOS CLINICAL HISTORY COLLECTION DATE: 10/11/18 CHRONIC CHOLECYSTITIS, CHOL ELITHIASIS FINAL DIAGNOSIS Gallbladder, cholecystectomy: KEY LITHIASIS CHRONIC CHOLECYSTITIS UNREMARKABLE LYMPH NODE NEG ATIVE FOR MALIGNANCY ANDREWW/[place] [address] CONTINUED ON NEXT PAGE RUN DATE: 10/12/18 [facility] PAGE 2 RUN TIME: 1544 Specimen Inquiry RUN USER: INTERF CRUZ SPEC # : [id number] PATIENT: ELLYN JIMENEZ #[id number] (Cont inued) MACROSCOPIC The specimen is received [...] thickness. No nodules or masses are present. Sql Analyst tissue is submitted in a single cassette. GROSS PERFORMED AT [facility] [address] [place], [place] [address] (p)[phone] MAREK ROSCOPIC MICROSCOPIC PERFORMED AT [facility] All of the stains, including any controls performed, stain appropriately. [facility] [address] [place] [address] (p)[phone] PERFOR CYNDI SITE Diagnosis performed at: [facility], [address] [place] [address] -------- ---- Signed SIGNATURE ON FILE Erin Cuevas/18/19 1 543 END OF REPORT SCR MAMM BILATERAL UCHE CAD [id number] 10:26:02 - SCR MAMM BILATERAL UCHE CAD DIGITALBILATERAL DIGITAL SCREENING MAMMOGRAM 3D/2D WITH CAD: 10/01/2018CLINICAL: Asymptomatic. Digital breast tomosynthesis was performed in addition to routine CC and MLO views. Current mammographic images were evaluated by either a [employer] M-Vu or a Oscar ImageVidedressingcker CAD (computer aided detection system). Comparison is made to exams dated 09/02/2017 mammogram, 1 09/25/2015 mammogram, and 07/15/2015 mammogram - [facility]. The tissue of both breasts [...] Imaging T echnologist: India Francisco , [facility] sent: BIRADS 1-2 Normal Mammogram BI-RADS: 2 Benign
[2020-06-12] MEDS ORDERED: BENICAR20 MG PO (14:54)
[2020-06-12] MEDS ORDERED: PROBIOTIC & AC1 EACH PO (14:54)
[2020-06-12] MEDS ORDERED: SIMVASTATIN20 MG PO (14:54)
[2020-06-12] MEDS ORDERED: LEVOTHYROXINE100 MC1 PO (14:54)
[2020-06-12] MEDS ORDERED: AMLODIPINE BESYL5 MG PO (14:54)
[2020-06-12] MEDS ORDERED: DICYCLOMINE HCL10 MG PO (14:54)
[2020-06-12] MEDS ORDERED: PANTOPRAZOLE SO40 MG PO (14:54)
[2020-06-12 18:39] VITALS: BP 179/57
--- NOTE | 2020-06-12 19:12 | NUR ---
PATIENT IN STABLE CONDITION WITH NO S/S OF RESPIRATORY DISTRESS. NO PAIN VOICED. TELEMETRY APPLIED. LEAD INGOT MOLDER INFORMED OF PATIENT'S BP- NO NEW ORDERS RECEIVED. CALL LIGHT IS WITHIN REACH, PATIENT INSTRUCTED TO CALL FOR ASSISTANCE NEEDED. ER TRANSFER REPORT AND BEDSIDE REPORT GIVEN TO ONCOMING NURSE.
[2020-06-12 20:00] VITALS: BP 163/56
--- NOTE | 2020-06-12 20:00 | NUR ---
Bedside report received from gretchen RN. Pt alert and awake. Admission completed with the help of pt's daughter Opal. Home medications verified. No needs expressed at this time. Room free of clutter and call light within reach. Informed pt to call for assistance. Understanding verbalized. Will continue to monitor.
[2020-06-12 20:16] VITALS: BP 163/56
[2020-06-12] MEDS ORDERED: SYNTHROID100 MCG PO (20:16)
[2020-06-12] MEDS ORDERED: SIMVASTATIN 20 MG TAB PO SCH (21:00)
[2020-06-13] VITALS (8 sets, daily range): BP systolic 132–153; BP diastolic 49–60
[2020-06-13 06:52] LABS: BASOPHILS % 0.6 % (0.0-1.0); EOSINOPHILS % 0.6 % (0.0-6.0); HEMATOCRIT 32.9 % (34.2-44.1); HEMOGLOBIN 10.6 g/dL (12.0-16.0); LYMPHOCYTES # (AUTO) 1.1 (1.0-3.2); LYMPHOCYTES % 15.1 % (18.0-39.1); MEAN CORPUSCULAR HEMOGLOBIN 29.4 pg (28-32); MEAN CORPUSCULAR HGB CONC 32.2 g/dL (31-35); MEAN CORPUSCULAR VOLUME 91.1 fL (81-99); MONOCYTES # (AUTO) 0.3 (0.2-0.8); MONOCYTES % 4.6 % (4.4-11.3); NEUTROPHILS # (AUTO) 5.7 (2.1-6.9); NEUTROPHILS % 78.7 % (38.7-80.0); PLATELET COUNT 318 x10e3/uL (140-360); RED BLOOD COUNT 3.61 x10e6/uL (3.6-5.1); RED CELL DISTRIBUTION WIDTH 13.8 % (11.7-14.4)
--- NOTE | 2020-06-13 07:00 | NUR ---
RECEIVED PATIENT AWAKE RESTING IN BED AT THIS TIME. NO S/S OF DISTRESS. BED LOW, WHEELS LOCKED, SIDE RAILS X2. CALL LIGHT IN REACH WILL CONTINUE TO MONITOR PATIENT.
[2020-06-13 07:09] LABS: ALANINE AMINOTRANSFERASE 20 IU/L (0-55); ALBUMIN 3.8 g/dL (3.5-5.0); ALBUMIN/GLOBULIN RATIO 1.4 (0.8-2.0); ALKALINE PHOSPHATASE 109 IU/L (40-150); ANION GAP 12.7 mmol/L (8-16); BLOOD UREA NITROGEN 18 mg/dL (7-26); BUN/CREATININE RATIO 21 (6-25); CALCIUM 8.8 mg/dL (8.4-10.2); CARBON DIOXIDE 25 mmol/L (22-29); CHLORIDE 103 mmol/L (98-107); CREATININE, SERUM 0.86 mg/dL (0.57-1.11); EST GLOMERULAR FILTRATION RATE > 60 ML/MIN (60-); GLUCOSE 121 mg/dL (74-118); POTASSIUM 4.7 mmol/L (3.5-5.1); SODIUM 136 mmol/L (136-145)
[2020-06-13 07:29] LABS: CREATINE KINASE MB 1.4 ng/mL (0-5.0)
[2020-06-13] MEDS: PANTOPRAZOLE 40 MG 10ML VIAL IV SCH (08:33)
[2020-06-13] MEDS ORDERED: AMLODIPINE BESYLATE 5 MG TAB PO SCH (09:00)
--- NOTE | 2020-06-13 13:10 | Consultation ---
DATE OF CONSULTATION: HISTORY OF PRESENT ILLNESS: An 80 years old with past medical history of hypertension, thyroid disorder, bladder prolapse, chronic bladder infection, and hyperlipidemia. I have see her in the office as an outpatient. Last office visit was in May 29 of this year when she presented with some abdominal discomfort and she was undergoing evaluation for abdominal pain. She was started on probiotic and dicyclomine in addition to continue her Protonix and also she had chronic constipation treated with MiraLAX. Her lab tests reveal alkaline phosphatase of 300 and an AST of 38 with negative workup. She was referred for ultrasound endoscopy by Dr. George. She presented to the emergency room after noticing bright red blood per rectum, admitted for observation. Today, she is comfortable, asymptomatic. She says she had a minimal bright red blood on the tissue paper only. Her blood count is still stable since admission. She denied nausea, vomiting, fever. Denied any abdominal pain. Denied any constipation or diarrhea. REVIEW OF SYSTEMS: Unremarkable. ALLERGIES: NO MEDICINE. MEDICATIONS: She is on: 1. Protonix. 2. Simvastatin. 3. Norvasc. PAST SURGICAL HISTORY: Cholecystectomy in 2019. FAMILY HISTORY: Liver cancer, both brothers. SOCIAL HISTORY: She is . She has 1 kid. She is retired. She does not smoke or drink. PHYSICAL EXAMINATION: GENERAL: Awake, alert, oriented, hemodynamically stable. Normal sclerae. NECK: Supple. No node or mass. LUNGS: Clear to auscultation. HEART: Regularly regular rhythm. ABDOMEN: Soft, nontender. No acute sign. No masses. EXTREMITIES: No edema. CENTRAL NERVOUS SYSTEM: Motor function grossly intact. LABORATORY TESTS: Hemoglobin and hematocrit are 10 and 33; on admission, 10 and 32. White cell count normal. BUN, creatinine normal. Sodium, potassium normal. Calcium normal. Liver function normal. I had a conversation with her daughter by phone and I advised her either we go ahead and do colonoscopy for the evaluation, the patient she did have previously colonoscopy by Dr. Ward in January of 2018, shows severe diverticulosis and 1 polyp. She also had upper endoscopy by Dr. Ward in January of 2019, shows small hiatal hernia, gastritis, so I gave the daughter the choices either we go ahead and do colonoscopy or since she is 80 years old, asymptomatic, her hemoglobin and hematocrit are stable and the blood mainly on the tissue paper, most likely internal hemorrhoid to give her treatment for internal hemorrhoid and send her back home and we keep monitoring her. The daughter, she said she will discuss the issue with her mom and they will come back. Yimi Osorio MD RD/[facility]IL[facility] /[id number]
--- NOTE | 2020-06-13 14:15 | NUR ---
Discussed pt status w/ Anusha Garcia CASE THERAPIST, stating pt does not appear to meet inpatient status. She agreed and gave order for observation.
[2020-06-14] VITALS (8 sets, daily range): BP systolic 121–151; BP diastolic 49–57
--- NOTE | 2020-06-14 07:10 | NUR ---
BEDSIDE REPORT GIVEN, PATIENT SLEEPING AT THIS TIME, WILL RETURN IN APPROX. AN HOUR.
[2020-06-14 07:19] LABS: BASOPHILS # (AUTO) 0.1 (0.0-0.1); BASOPHILS % 0.8 % (0.0-1.0); EOSINOPHILS # (AUTO) 0.2 (0.0-0.4); EOSINOPHILS % 2.4 % (0.0-6.0); HEMATOCRIT 32.2 % (34.2-44.1); HEMOGLOBIN 10.2 g/dL (12.0-16.0); LYMPHOCYTES # (AUTO) 2.2 (1.0-3.2); LYMPHOCYTES % 29.3 % (18.0-39.1); MEAN CORPUSCULAR HEMOGLOBIN 28.6 pg (28-32); MEAN CORPUSCULAR HGB CONC 31.7 g/dL (31-35); MEAN CORPUSCULAR VOLUME 90.2 fL (81-99); MONOCYTES # (AUTO) 0.6 (0.2-0.8); MONOCYTES % 7.7 % (4.4-11.3); NEUTROPHILS # (AUTO) 4.4 (2.1-6.9); NEUTROPHILS % 59.5 % (38.7-80.0); PLATELET COUNT 310 x10e3/uL (140-360); RED BLOOD COUNT 3.57 x10e6/uL (3.6-5.1); RED CELL DISTRIBUTION WIDTH 13.9 % (11.7-14.4)
--- NOTE | 2020-06-14 07:29 | NUR ---
Bedside report given to dayshift RN. Pt alert and awake. No needs at this time. Care transferred.
[2020-06-14 07:31] LABS: ANION GAP 14.2 mmol/L (8-16); BLOOD UREA NITROGEN 19 mg/dL (7-26); BUN/CREATININE RATIO 23 (6-25); CALCIUM 8.5 mg/dL (8.4-10.2); CARBON DIOXIDE 24 mmol/L (22-29); CHLORIDE 102 mmol/L (98-107); CREATININE, SERUM 0.83 mg/dL (0.57-1.11); EST GLOMERULAR FILTRATION RATE > 60 ML/MIN (60-); GLUCOSE 89 mg/dL (74-118); POTASSIUM 4.2 mmol/L (3.5-5.1); SODIUM 136 mmol/L (136-145)
--- NOTE | 2020-06-14 09:00 | NUR ---
MEDS GIVEN TO PATIENT WITH NO PROBLEMS. CLEARS TOLERATED WELL.
[2020-06-14] MEDS: PANTOPRAZOLE 40 MG 10ML VIAL IV SCH (13:23)
[2020-06-14] MEDS: AMLODIPINE BESYLATE 5 MG TAB PO SCH (13:23)
--- NOTE | 2020-06-14 17:00 | NUR ---
PATIENT HAD A BM THAT IS SOFT, BLOODY. WILL HAVE CBC IN AM.
[2020-06-14] MEDS ORDERED: ONDANSETRON HCL INJ 2MG/ML 2ML 2 MG/ML VIAL IV PRN (17:45)
[2020-06-14] MEDS ORDERED: HYDRALAZINE HCL 20 MG/ML VIAL IV PRN (17:45)
[2020-06-14] MEDS ORDERED: ACETAMINOPHEN 325 MG TAB PO PRN (17:45)
--- NOTE | 2020-06-14 18:05 | NUR ---
PATIENT HAS BEEN COOPERATIVE, QUIET, AMBULATES TO BATHROOM, DAUGHTER CALLED TO SEE IF PATIENT WILL D/C TODAY AND WAS TOLD PATIENT WILL HAVE LABS IN AM AND POSSIBLE DISCHARGE TOMORROW.
[2020-06-14] MEDS: DICYCLOMINE HCL 10 MG CAP PO SCH ×2 (20:08→21:20)
[2020-06-15] VITALS: BP 127/50
[2020-06-15 04:00] VITALS: BP 155/50
[2020-06-15] MEDS ORDERED: LEVOTHYROXINE SODIUM 100 MCG TAB PO SCH (06:00)
[2020-06-15 06:17] LABS: BASOPHILS # (AUTO) 0.1 (0.0-0.1); BASOPHILS % 0.7 % (0.0-1.0); EOSINOPHILS # (AUTO) 0.2 (0.0-0.4); EOSINOPHILS % 2.4 % (0.0-6.0); HEMATOCRIT 31.9 % (34.2-44.1); HEMOGLOBIN 10.2 g/dL (12.0-16.0); LYMPHOCYTES # (AUTO) 1.9 (1.0-3.2); LYMPHOCYTES % 28.1 % (18.0-39.1); MEAN CORPUSCULAR HEMOGLOBIN 28.7 pg (28-32); MEAN CORPUSCULAR VOLUME 89.9 fL (81-99); MONOCYTES # (AUTO) 0.5 (0.2-0.8); NEUTROPHILS # (AUTO) 4.1 (2.1-6.9); NEUTROPHILS % 60.5 % (38.7-80.0); PLATELET COUNT 320 x10e3/uL (140-360); RED BLOOD COUNT 3.55 x10e6/uL (3.6-5.1); RED CELL DISTRIBUTION WIDTH 13.8 % (11.7-14.4)
[2020-06-15 06:51] LABS: ALANINE AMINOTRANSFERASE 17 IU/L (0-55); ALBUMIN 3.7 g/dL (3.5-5.0); ALBUMIN/GLOBULIN RATIO 1.5 (0.8-2.0); ALKALINE PHOSPHATASE 98 IU/L (40-150); ANION GAP 13.1 mmol/L (8-16); BLOOD UREA NITROGEN 15 mg/dL (7-26); BUN/CREATININE RATIO 20 (6-25); CARBON DIOXIDE 25 mmol/L (22-29); CHLORIDE 103 mmol/L (98-107); CREATININE, SERUM 0.74 mg/dL (0.57-1.11); EST GLOMERULAR FILTRATION RATE > 60 ML/MIN (60-); GLUCOSE 93 mg/dL (74-118); POTASSIUM 4.1 mmol/L (3.5-5.1); SODIUM 137 mmol/L (136-145)
--- NOTE | 2020-06-15 06:55 | NUR ---
SBAR REPORT RECEIVED FROM TOSIN MCMANUS, PM SHIFT. PATIENT WAS FOUND RESTING IN BED IN NO ACUTE DISTRESS. PATIENT IS KAZAKH SPEAKING AND CONVERSE IN TURKISH MINIMALLY. PATIENT IS ALERT AND ABLE TO MAKE NEEDS KNOWN. PATIENT DENIES ANY NEEDS AT THIS TIME. PATIENT WAS EDUCATED ON FALL RISK PRECAUTIONS. PATIENT VERBALIZED UNDERSTANDING. CALL LIGHT AND BELONGINGS PLACED NEARBY. WILL CONTINUE TO MONITOR.
[2020-06-15 07:10] LABS: CHOL/HDL RATIO 3.3 (3.0-3.6)
[2020-06-15 07:30] LABS: THYROID STIMULATING HORMONE 2.313 uIU/mL (0.350-4.940)
[2020-06-15 09:00] VITALS: BP 150/47
[2020-06-15] MEDS: AMLODIPINE BESYLATE 5 MG TAB PO SCH (09:26)
[2020-06-15] MEDS: PANTOPRAZOLE 40 MG 10ML VIAL IV SCH (09:26)
[2020-06-15] MEDS: DICYCLOMINE HCL 10 MG CAP PO SCH (09:26)
--- NOTE | 2020-06-15 09:30 | NUR ---
I RECEIVED A CALL FROM BRENDA, HOME RESTORATION SERVICE SUPERVISOR REQUESTING A D/C ORDER. I PLACED A CALL TO THE ATTENDING PHYSICIAN AND SPOKE WITH DYLLAN ROJAS, WHO WAS MADE AWARE OF THE REQUEST AND WILL ROUND SOON.
--- NOTE | 2020-06-15 11:57 | NUR ---
CALL PLACED TO PATIENT'S DAUGHTER, KADEEM, ON BEHALF OF DR. ROQUE. PT OK WITH PICKING HER MOM UP UPON DISCHARGE
--- NOTE | 2020-06-15 14:31 | NUR ---
PATIENT DISCHARGED HOME VIA PRIVATE VEHICLE. PERIPHERAL IV WAS DISCONTINUED. CATHETER TIP INTACT WITHOUT RESISTANCE. DRY DRESSING APPLIED. PATIENT/CAREGIVER KADEEM (DAUGHTER) RECEIVED DISCHARGE INSTRUCTIONS AND EDUCATION SHEETS. PT/CAREGIVER VERBALIZED UNDERSTANDING.
--- NOTE | 2020-06-15 18:04 | Discharge Summary ---
CONSULTING PHYSICIAN: Dr. Yimi Osorio. CHIEF COMPLAINT: Lower GI bleed. HISTORY OF PRESENT ILLNESS: The patient is an 80-year-old female with past medical history of hypertension, hypothyroidism, bladder prolapse, chronic bladder infection, and hyperlipidemia, who was admitted with complaints of lower GI bleed. The patient was sent from her physician's office. The patient reported that she had minimal bright red blood. GI was consulted for further evaluation. PAST MEDICAL HISTORY: Hypertension, hyperlipidemia, and hypothyroidism. PAST SURGICAL HISTORY: Cholecystectomy in 2019. FAMILY HISTORY: Noncontributory. ALLERGIES: NO KNOWN ALLERGIES. ADMITTING DIAGNOSES: 1. Lower gastrointestinal bleed. 2. Hypertension. DISCHARGE DIAGNOSES: 1. Lower gastrointestinal bleed. 2. Hypertension. HOSPITAL COURSE: Hemoglobin and hematocrit remained stable. Today, hemoglobin 10.2 and hematocrit 31.9. Today on the day of discharge; temperature 98.7, pulse 59, blood pressure 150/47, respirations 16, oxygen saturation 100%. No change in physical exam. The patient states she is still having minimal amount of dark blood in her stool. Dr. Osorio will not be able to do colonoscopy tomorrow as [facility] has several procedures lined up, but will be able to do the colonoscopy on an outpatient basis, so the patient is to follow up with him in 1 to 2 weeks and follow up with her PCP, Dr. Cross in 1 to 2 weeks. The patient is currently on a clear liquid diet, however, I will change this to GI soft diet. MARIETTA Orozco available for Slovak interpretation throughout encounter. The patient is currently up walking with physical therapist. The patient understands that she needs to follow up with Dr. Osorio and her PCP. Per Dr. Osorio, he was unable to reach the patient's daughter and states that the number listed for her was likely inaccurate or not working. The patient's daughter's name is Serenity, phone number provided by the patient is [phone]. Dictated by Romulo Ballesteros, ANASTASIIA Cam Batres MD HWP/MODL /[id number]
== END 2020-06-15 15:15 | disposition home or self-care (01) ==
LOC: ER 13:30 → ERHOLD 13:33 → INTOOBSV 13:33 → MED/SURG3 18:00
PROVIDERS: ADMIT Internal Medicine; ATTEND Internal Medicine
DX: K92.2 Gastrointestinal hemorrhage, unspecified (principal); I10 Essential (primary) hypertension; E78.5 Hyperlipidemia, unspecified; E03.9 Hypothyroidism, unspecified; Z11.59 Encounter for screening for other viral diseases
CPT/HCPCS: 36415 ×4; 80048; 80053 ×3; 80061; 82550 ×2; 82553 ×2; 83735; 84443; 84484 ×2; 85025 ×4; 85610; 86850; 86900; 97161; 99284; C9113 ×4; G0378 ×4; U0002

== ENCOUNTER → 2020-11-24 | Day surgery (SDC) | payer OTHER ==
[2020-11-05 11:44] LABS: BASOPHILS % 0.5 % (0.0-1.0); EOSINOPHILS # (AUTO) 0.2 (0.0-0.4); HEMATOCRIT 36.4 % (34.2-44.1); HEMOGLOBIN 11.2 g/dL (12.0-16.0); LYMPHOCYTES # (AUTO) 2.2 (1.0-3.2); LYMPHOCYTES % 26.7 % (18.0-39.1); MEAN CORPUSCULAR HEMOGLOBIN 26.3 pg (28-32); MEAN CORPUSCULAR HGB CONC 30.8 g/dL (31-35); MEAN CORPUSCULAR VOLUME 85.4 fL (81-99); MONOCYTES # (AUTO) 0.6 (0.2-0.8); MONOCYTES % 7.5 % (4.4-11.3); NEUTROPHILS # (AUTO) 5.1 (2.1-6.9); NEUTROPHILS % 63.1 % (38.7-80.0); PLATELET COUNT 323 x10e3/uL (140-360); RED BLOOD COUNT 4.26 x10e6/uL (3.6-5.1); RED CELL DISTRIBUTION WIDTH 15.8 % (11.7-14.4)
[2020-11-05 12:02] LABS: ALBUMIN 3.8 g/dL (3.5-5.0); ALBUMIN/GLOBULIN RATIO 1.1 (0.8-2.0); ANION GAP 14.2 mmol/L (8-16); CALCIUM 9.2 mg/dL (8.4-10.2); CREATININE, SERUM 0.96 mg/dL (0.57-1.11); POTASSIUM 4.2 mmol/L (3.5-5.1)
[~2020-11-24] MED LIST: AMLODIPINE BESYL5 MG PO; BENICAR20 MG PO; BUPIVACAINE HCL 0.5% INJ 30 ML VIAL INJ ONE; CEFAZOLIN SOD 1 GM/NS 50ML 100 ML IV ONE; DEXAMETHASONE SOD PHOS INJ 4 MG/ML VIAL ONE; DICYCLOMINE HCL10 MG PO; ESTROGENS CONJUGATED VAGINAL CR 45 GM TUBE PV ONE; FENTANYL CITRATE/PF 100MCG/2 ML INJ ONE; GLYCOPYRROLATE INJ 0.2 MG/ML VIAL ONE; HYDROCODONE/APAP 5MG-325MG TAB ONE; KETOROLAC TROMETHAMINE 30 MG/ML VIAL ONE; LEVOTHYROXINE100 MC1 PO; LIDOCAINE 1% W/EPINEPHRINE 20 ML VIAL ONE; LIDOCAINE HCL 2% LOCAL INJ 5 ML SDV VIAL INJ ONE; NEOSTIGMINE 1 MG/ML 10ML VIAL ONE; ONDANSETRON HCL INJ 2MG/ML 2ML 2 MG/ML VIAL ONE; PANTOPRAZOLE SO40 MG PO; PROBIOTIC & AC1 EACH PO; PROPOFOL IV EMULSION 10 MG/ML 20 ML VIAL ONE; ROCURONIUM BROMIDE 10 MG/ML 5ML VIAL IV ONE; SEVOFLURANE INHAL SOLN 250 ML PEN BTL ONE; SIMVASTATIN20 MG PO; SYNTHROID100 MCG PO; VENOFER100 MG/5 M PO
[2020-11-24 16:15] VITALS: BP 138/64
== END | disposition home or self-care (01) ==
LOC: OR 07:14
PROVIDERS: ATTEND Obstetrics & Gynecology Obstetrics
DX: N81.4 Uterovaginal prolapse, unspecified (principal); N71.9 Inflammatory disease of uterus, unspecified; D25.9 Leiomyoma of uterus, unspecified; D27.9 Benign neoplasm of unspecified ovary; N73.6 Female pelvic peritoneal adhesions (postinfective); I10 Essential (primary) hypertension; E03.9 Hypothyroidism, unspecified; M19.90 Unspecified osteoarthritis, unspecified site; K21.9 Gastro-esophageal reflux disease without esophagitis; E78.5 Hyperlipidemia, unspecified; Z01.810 Encounter for preprocedural cardiovascular examination; Z01.812 Encounter for preprocedural laboratory examination; Z01.818 Encounter for other preprocedural examination; Z20.822 Contact with and (suspected) exposure to COVID-19; Z86.73 Personal history of transient ischemic attack (TIA), and cerebral infarction without residual deficits
CPT/HCPCS: 36415; 57260; 57282; 58262; 71046; 80053; 85025; 86850; 86900; 88307; 93005; J0690; J1100; J1885; J2001; J2405; J2704; J2710; J3010; U0002 ×2